=== PATIENT | female | born 2000 | race Caucasian/White ===

== ENCOUNTER 2020-05-03 17:35 | Observation (INO) ==
[2020-05-03] MEDS ORDERED: Ondansetron ODT 4 mg TAB 4 MG TAB PO ONE (17:48)
[2020-05-03 19:48] LABS: ABS Eosinophils 0.1 10^3/ul (0-0.6); ABS Lymphocytes 3.3 10^3/ul (1.0-4.8); ABS Monocytes 0.5 10^3/ul (0-0.8); ABS Neutrophils 8.2 10^3/ul (1.5-7.7); Eosinophil % 0.6 %; Hematocrit 44 % (35-47); Hemoglobin 14.6 g/dL (12.0-16.0); Mean Corpuscular HGB Conc 34 g/dL (31-36); Mean Corpuscular Hemoglobin 27 pg (27-31); Mean Corpuscular Volume 80 fL (80-97); Mean Platelet Volume 8.2 fL (7.4-10.4); Nucleated Red Blood Cells % 0.1; Platelet Count 359 10^3/uL (150-450); Red Blood Count 5.44 10^6 /uL (3.70-4.87); Red Cell Distribution Width 13 % (10-15); White Blood Count 12.1 10^3/uL (3.5-10.8)
[2020-05-03 20:08] LABS: ALT 21 U/L (7-52); AST 18 U/L (13-39); Albumin/Globulin Ratio 1.5 (1-3); Alkaline Phosphatase 35 U/L (34-104); Anion Gap 9 mmol/L (2-11); BUN/Creatinine Ratio 16.9 (8-20); Blood Urea Nitrogen 13 mg/dL (6-24); C Reactive Protein 42.29 mg/L (<8.01); CO2 Carbon Dioxide 25 mmol/L (22-32); Chloride 103 mmol/L (101-111); EGFR African American 113.4 (>60); EGFR Non-African American 93.7 (>60); Globulin 3.4 g/dL (2-4); Glucose 88 mg/dL (70-100); HCG Pregnancy < 0.60 mIU/mL; Lipase 24 U/L (11.0-82.0); Potassium 3.7 mmol/L (3.5-5.0); Sodium 137 mmol/L (135-145); Total Protein 8.4 g/dL (6.4-8.9)
[2020-05-03] MEDS ORDERED: Iohexol 300 (CONTRAST) 10 ML SDV IV ONE (20:42)
[2020-05-03] MEDS ORDERED: NS 0.9% 1000 ml BAG 1,000 ML IV ONE (22:23)
[2020-05-03] MEDS ORDERED: Ondansetron 4 mg VIAL 2 MG/ML 2 ml VIAL IV ONE (22:23)
[2020-05-03] MEDS ORDERED: Ciprofloxacin 400mg IVPREMIX 400 MG/200 ML BAG IVPB ONE (22:44)
[2020-05-03] MEDS ORDERED: metroNIDAZOLE IV 500 MG/100ML 500 MG/100 ML BAG IVPB ONE (22:45)
[2020-05-03] MEDS ORDERED: Ondansetron 4 mg VIAL 2 MG/ML 2 ml VIAL IV PRN (22:48)
[2020-05-03] MEDS ORDERED: HYDROmorphone 1 MG/1 ML SYRINGE IV SLOW PU PRN (22:48)
[2020-05-04] MEDS: Lactated Ringers 1000 ml BAG 1,000 ML IV SCH ×2 (00:21→12:10)
[2020-05-04] MEDS ORDERED: metroNIDAZOLE IV 500 MG/100ML 500 MG/100 ML BAG IVPB SCH (11:00)
[2020-05-04] MEDS ORDERED: Cefepime 2 GM in Dextrose 2 GM/50 ML BAG IV SCH (12:00)
[2020-05-04] MEDS ORDERED: Naloxone 0.4 mg VIAL 0.4 mg/ml 1 ml VIAL IV PRN ×2 (13:08→14:29)
[2020-05-04] MEDS ORDERED: HYDROcodone/ACETAMIN 5/325 mg TAB PO PRN (13:08)
[2020-05-04] MEDS ORDERED: Sodium Citrate/Citric Acid LIQ 15 ML UDC PO ONE (13:08)
[2020-05-04] MEDS ORDERED: oxyCODONE/Acetamin 5/325 mg TAB PO PRN (13:08)
[2020-05-04] MEDS ORDERED: fentaNYL 100 mcg/2 ml 50 MCG/ML VIAL IV PRN ×2 (13:08→14:29)
[2020-05-04] MEDS ORDERED: DiMENhydriNATE IV 50 mg/ml 1 ml VIAL IV PUSH PRN (13:08)
[2020-05-04] MEDS ORDERED: Sodium Citrate/Citric Acid LIQ 15 ML UDC ONE (13:10)
[2020-05-04] MEDS ORDERED: Bupivacaine 0.25% SDV PF 10 ML VIAL INJ ONE (13:55)
[2020-05-04] MEDS ORDERED: fentaNYL 100 mcg/2 ml 50 MCG/ML VIAL ONE (14:04)
[2020-05-04] MEDS ORDERED: Rocuronium 50 mg VIAL 10 mg/ml 5 ml VIAL (50 mg) ONE (14:05)
[2020-05-04] MEDS ORDERED: Lidocaine 2% PF 5 ML VIAL ONE (14:05)
[2020-05-04] MEDS ORDERED: Midazolam 2 mg/2 ml VIAL 1 mg/ml 2 ml VIAL (2 mg) ONE ×2 (14:05→14:21)
[2020-05-04] MEDS ORDERED: Propofol 10 MG/ML 20 ML BTL ONE (14:05)
[2020-05-04] MEDS ORDERED: HYDROmorphone 1 MG/1 ML SYRINGE IV PRN (14:29)
[2020-05-04] MEDS ORDERED: Ondansetron 4 mg VIAL 2 MG/ML 2 ml VIAL IV PRN (14:29)
[2020-05-04] MEDS ORDERED: Dexamethasone IV 4 MG/ML VIAL 1 ml VIAL ONE (14:44)
[2020-05-04] MEDS ORDERED: Ondansetron 4 mg VIAL 2 MG/ML 2 ml VIAL ONE (14:44)
[2020-05-04] MEDS ORDERED: HYDROmorphone 1 MG/1 ML SYRINGE ONE (14:47)
[2020-05-04 16:09] VITALS: BP 115/66
== END 2020-05-04 16:55 | disposition home or self-care (01) ==
LOC: ED 17:35 → SSU 17:35
PROVIDERS: ADMIT Surgery; ATTEND Surgery Surgical Critical Care